=== PATIENT | male | born 1950 | race Caucasian/White ===

== ENCOUNTER 2017-02-26 19:57 | Observation (INO) | payer MEDICARE, BC ==
[~2017-02-26] VITALS: Ht 172.7 cm; Wt 90.0 kg
[~2017-02-26 19:57] MED LIST: ALPR1TAB3 PO; ATOR20TA PO; CIPR500T4 PO; LISI-587 PO; METF500 PO; METH5SOL3 PO; METO50TA PO; PROT40TA PO
[2017-02-26 19:59] VITALS: BP 198/93; PULSE 81; RESP 18; TEMP 99.2; O2SAT 96
[2017-02-26 20:52] VITALS: BP 140/90; PULSE 75; RESP 16; O2SAT 98
[2017-02-26] MEDS ORDERED: METH10TA PO (20:58)
[2017-02-26] MEDS ORDERED: HYDR-3580 PO (20:58)
[2017-02-26] MEDS ORDERED: METF500T PO (20:58)
[2017-02-26] MEDS ORDERED: ALPR1TAB3 PO (20:58)
[2017-02-26] MEDS ORDERED: ATOR40TA16 PO (20:58)
[2017-02-26] MEDS ORDERED: OMEP20TA PO (20:58)
[2017-02-26] MEDS ORDERED: METO50TA PO (20:58)
[2017-02-26] MEDS ORDERED: LISI20TA3 PO (20:58)
[2017-02-26 21:30] LABS: AUTOMATED NEUTROPHIL # 8.2 TH/MM3 (1.8-7.7); BASOPHIL % 0.3 % (0.0-2.0); EOSINOPHIL % 0.2 % (0.0-4.0); HEMATOCRIT 40.6 % (39.0-51.0); HEMO FLAGS DIFF FINAL; LYMPH % 20.1 % (9.0-44.0); LYMPHOCYTE # 2.3 TH/MM3 (1.0-4.8); MEAN CORPUSCULAR HEMOGLOBIN 31.3 PG (27.0-34.0); MEAN CORPUSCULAR HGB CONC 34.4 % (32.0-36.0); MONO % 7.6 % (0.0-8.0); NEUT % 71.8 % (16.0-70.0); PLATELET COUNT 250 TH/MM3 (150-450); RED BLOOD COUNT 4.46 MIL/MM3 (4.50-5.90); RED CELL DISTRIBUTION WIDTH 12.6 % (11.6-17.2); WHITE BLOOD COUNT 11.4 TH/MM3 (4.0-11.0)
[2017-02-26] MEDS ORDERED: ALPRAZolam 1 MG TAB PO ONE (21:30)
[2017-02-26] MEDS ORDERED: ASPIRIN 81 MG CHEW TAB CHEW ONE (21:30)
--- NOTE | 2017-02-26 21:38 | RADRPT ---
EXAM DATE/TIME: 02/26/2017 22:11 [place] COMPARISON: CHEST SINGLE AP, November 25, 2014, 17:35. INDICATIONS : Chest pain. MEDICAL HISTORY : None. SURGICAL HISTORY : None. ENCOUNTER: Initial ACUITY: 1 day PAIN SCORE: 5/10 LOCATION: Bilateral chest FINDINGS: A single view of the chest demonstrates the lungs to be symmetrically aerated without evidence of mas s, infiltrate or effusion. The cardiomediastinal contours are unremarkable. Osseous structures are intact. CONCLUSION: No acute disease. Joshua Jimenez MD on February 26, 2017 at 21:37 Board Certified Radiologist. This report was verified electronically.
[2017-02-26 21:40] LABS: APTT (PATIENT) 26.3 SEC (24.3-30.1); PROTHROMBIN TIME - PATIENT 11.3 SEC (9.8-11.6)
[2017-02-26 21:50] LABS: ALT (GPT) 36 U/L (12-78); ANION GAP 11 MEQ/L (5-15); AST (GOT) 25 U/L (15-37); BICARBONATE 24.9 MEQ/L (21.0-32.0); BLOOD UREA NITROGEN 25 MG/DL (7-18); CHLORIDE 98 MEQ/L (98-107); GLOMERULAR FILTRATION RATE 67 ML/MIN (>89); MAGNESIUM 1.9 MG/DL (1.5-2.5); POTASSIUM 3.8 MEQ/L (3.5-5.1); SODIUM (NA) 134 MEQ/L (136-145)
[2017-02-26 21:55] LABS: ALKALINE PHOSPHATASE 44 U/L (45-117); CREATINE KINASE 355 U/L (39-308); TOTAL BILIRUBIN ADULT 0.7 MG/DL (0.2-1.0)
[2017-02-26 22:06] LABS: CKMB 4.4 NG/ML (0.5-3.6)
--- NOTE | 2017-02-26 22:07 | PD ---
HPI Chief Complaint: Anxiety Time Seen by Provider: 20:37 Travel History International Travel<30 days: No Contact w/Intl Traveler<30days: No Traveled to known affect area: No History of Present Illness HPI The patient is a 66 year old male who presents to the [facility] emergency department with a history of reportedly not feeling well over the last few days. The patient attributes this to withdrawal symptoms from being out of his alprazolam for the last 5 days. He reports that they recently traveled to [place] with the intention of moving their, however they were having difficulty finding a physician, therefore they came back. He was previously being seen by a neurology group called the [facility]. The patient reports that they have been treating him with methadone for his chronic back pain as well as hydrocodone for his breakthrough pain. The patient reports that he was also prescribed alprazolam, however they decided that they would not be refilling this type of prescription any longer. He was told that he would need to follow-up with a psychiatrist to continue on the medication. He reports that over the last 2 days he's had nausea without vomiting, intermittent headaches and dizziness, chills, and worsening indigestion. He also reports that he's had bilateral shoulder pain. He reports that he was concerned that this may be related to his heart. He reports that he has been diagnosed with a heart murmur in the past, however he denies any prior history of myocardial infarction or congestive heart failure. He reports that he last had a stress test years ago and has no intention of having another one. On review of systems, the patient denies having any known fevers, however he has had reported chills over the last 2 days. He denies having any recent cough, congestion, worsening neck pain, chest pain, shortness of breath, abdominal pain, vomiting, diarrhea, urinary symptoms, or other neurologic symptoms. [facility] Past Medical History Narrative Medical The patient's past medical history is significant for diabetes mellitus, Guillain-Isaacs, posttraumatic stress disorder, anxiety disorder, hypertension, dyslipidemia, chronic back pain. Arthritis: No Asthma: No Autoimmune Disease: No Anxiety: Yes Depression: No Heart Rhythm Problems: No Cancer: No Cardiovascular Problems: Yes (HEART MURMUR) High Cholesterol: Yes Chemotherapy: No Congestive Heart Failure: No COPD: No Cerebrovascular Accident: No Diabetes: Yes Patient Takes Glucophage: Yes Diminished Hearing: No Endocrine: No Gastrointestinal Disorders: Yes GERD: No Genitourinary: No Hiatal Hernia: Yes (INGUINAL HERNIA) Hypertension: Yes Immune Disorder: No Kidney Stones: No Musculoskeletal: Yes (FOOT DROP) Neurologic: Yes (EVA BARRE) Psychiatric: Yes (PTSD) Reproductive: No Respiratory: No Migraines: No Radiation Therapy: No Renal Failure: No Seizures: No Sickle Cell Disease: No Sleep Apnea: No Ulcer: No Tetanus Vaccination: Never Vaccinated Influenza Vaccination: No Past Surgical History Narrative Surgical The patient's past surgical history is significant for 3 prior back surgeries, umbilical hernia repair. Abdominal Surgery: Yes (PREVIOUS PEG TUBE) AICD: No Arteriovenous Shunt: No Cardiac Surgery: No Ear Surgery: No Endocrine Surgery: No Eye Surgery: No Genitourinary Surgery: No Gynecologic Surgery: No Insulin Pump: No Joint Replacement: No Oral Surgery: No Pacemaker: No Thoracic Surgery: No Other Surgery: Yes Social History Alcohol Use: No Tobacco Use: No Substance Use: No Allergies-Medications (Allergen,Severity, Reaction): Coded Allergies: gabapentin (Verified Allergy, Unknown, 02/26/17) Reported Meds & Prescriptions Reported Meds & Active Scripts Active Reported Alprazolam 1 Mg Tab 1 Mg PO Q8H PRN Omeprazole 20 Mg Tab 20 Mg PO DAILY Atorvastatin (Atorvastatin Calcium) 40 Mg Tab 40 Mg PO HS Metoprolol Tartrate 50 Mg Tab 50 Mg PO DAILY Lisinopril-Hctz 20-25 Mg Tab 1 Tab PO DAILY Metformin (Metformin HCl) 500 Mg Tab 500 Mg PO BIDPC Hydrocodone-Acetaminophen 7.5-325 mg Tab 2 Tab PO Q6H PRN Methadone (Methadone HCl) 10 Mg Tab 10 Mg PO TID Review of Systems Except as stated in HPI: all other systems reviewed are Neg General / Constitutional: Positive: Chills, No: Fever Eyes: No: Visual changes HENT: No: Headaches Cardiovascular: No: Chest Pain or Discomfort, Diaphoresis, Dyspnea on exertion Respiratory: No: Shortness of Breath Gastrointestinal: Positive: Nausea, Indigestion, No: Vomiting, Diarrhea, Abdominal Pain, Constipation, Loss of Appetite Genitourinary: No: Dysuria Musculoskeletal: Positive: Myalgias (bilateral shoulder), Pain Skin: No Rash Neurologic: No: Weakness Psychiatric: No: Depression Endocrine: No: Polydipsia Hematologic/Lymphatic: No: Easy Bruising Physical Exam Narrative General: The patient is a well-developed well-nourished male in no acute distress Head and Neck exam: Head is normocephalic atraumatic. Eyes: EOMI, pupils are equal round and reactive to light. Nose: Midline septum with pink mucous membranes Mouth: Dentition unremarkable. Moist mucus membranes. Posterior oropharynx is not erythematous. No tonsillar hypertrophy. Uvula midline. Airway patent. Neck: No palpable lymphadenopathy. No nuchal rigidity. No thyromegaly. Cardiovascular: Regular rate and rhythm without murmurs, gallops, or rubs. No pulse deficit to the extremities on simultaneously auscultation to palpation of his radial artery. Lungs: Clear to auscultation bilaterally. No wheezes, rhonchi, or rales. Abdomen: Soft, without tenderness to palpation in all 4 quadrants of the abdomen. No guarding, rebound, or rigidity. Normal bowel sounds are audible. No tenderness on palpation of McBurney's point. Extremities: No clubbing, cyanosis, or edema. 2+ pulses in all 4 extremities. No calf tenderness on palpation. Back: No spinous process tenderness to palpation. No costovertebral angle tenderness to palpation. Neurologic Exam: Grossly nonfocal. No tremulousness noted. Skin Exam: No rash noted. Intact skin that is warm and dry. Data Data Last Documented VS Vital Signs Date Time Temp Pulse Resp B/P (MAP) Pulse Ox O2 Delivery O2 Flow Rate FiO2 02/26/17 22:42 78 18 150/69 (96) 98 Room Air 02/26/17 19:59 99.2 Orders Orders Electrocardiogram (02/26/17 21:14) Complete Blood Count With Diff (02/26/17 21:14) Comprehensive Metabolic Panel (02/26/17 21:14) Creatine Kinase (Cpk) (02/26/17 21:14) Ckmb (Isoenzyme) Profile (02/26/17 21:14) Troponin I (02/26/17 21:14) B-Type Natriuretic Peptide (02/26/17 21:14) Prothrombin Time / Inr (Pt) (02/26/17 21:14) Act Partial Throm Time (Ptt) (02/26/17 21:14) Lipase (02/26/17 21:14) Magnesium (Mg) (02/26/17 21:14) Chest, Single Ap (02/26/17 21:14) Iv Access Insert/Monitor (02/26/17 21:14) Ecg Monitoring (02/26/17 21:14) Oximetry (02/26/17 21:14) Alprazolam (Xanax) (02/26/17 21:30) Aspirin Chew (Aspirin Chew) (02/26/17 21:30) CKMB (02/26/17 21:20) CKMB% (02/26/17 21:20) Nitroglycerin 2% Oint (Nitroglycerin 2% (02/26/17 23:00) Admit Order (Ed Use Only) (02/26/17 22:50) Labs Laboratory Tests Test 02/26/17 21:20 White Blood Count 11.4 TH/MM3 Red Blood Count 4.46 MIL/MM3 Hemoglobin 14.0 GM/DL Hematocrit 40.6 % Mean Corpuscular Volume 91.0 FL Mean Corpuscular Hemoglobin 31.3 PG Mean Corpuscular Hemoglobin Concent 34.4 % Red Cell Distribution Width 12.6 % Platelet Count 250 TH/MM3 Mean Platelet Volume 7.0 FL Neutrophils (%) (Auto) 71.8 % Lymphocytes (%) (Auto) 20.1 % Monocytes (%) (Auto) 7.6 % Eosinophils (%) (Auto) 0.2 % Basophils (%) (Auto) 0.3 % Neutrophils # (Auto) 8.2 TH/MM3 Lymphocytes # (Auto) 2.3 TH/MM3 Monocytes # (Auto) 0.9 TH/MM3 Eosinophils # (Auto) 0.0 TH/MM3 Basophils # (Auto) 0.0 TH/MM3 CBC Comment DIFF FINAL Differential Comment Prothrombin Time 11.3 SEC Prothromb Time International Ratio 1.0 RATIO Activated Partial Thromboplast Time 26.3 SEC Blood Urea Nitrogen 25 MG/DL Creatinine 1.10 MG/DL Random Glucose 241 MG/DL Total Protein 8.6 GM/DL Albumin 4.4 GM/DL Calcium Level 9.8 MG/DL Magnesium Level 1.9 MG/DL Alkaline Phosphatase 44 U/L Aspartate Amino Transf (AST/SGOT) 25 U/L Alanine Aminotransferase (ALT/SGPT) 36 U/L Total Bilirubin 0.7 MG/DL Sodium Level 134 MEQ/L Potassium Level 3.8 MEQ/L Chloride Level 98 MEQ/L Carbon Dioxide Level 24.9 MEQ/L Anion Gap 11 MEQ/L Estimat Glomerular Filtration Rate 67 ML/MIN Total Creatine Kinase 355 U/L Creatine Kinase MB 4.4 NG/ML Creatine Kinase MB % 1.2 % Troponin I LESS THAN 0.02 NG/ML B-Type Natriuretic Peptide 111 PG/ML Lipase 160 U/L MDM Medical Decision Making Medical Screen Exam Complete: Yes Emergency Medical Condition: Yes Medical Record Reviewed: Yes Interpretation(s) Last Impressions Chest X-Ray 02/26/172113 Signed Impressions: Service Date/Time: Sunday, February 26, 2017 22:11 - CONCLUSION: No acute disease. Joshua Jimenez MD Differential Diagnosis Acute coronary syndrome, versus acid reflux, versus exacerbation of anxiety disorder due to being out of anxiolytics, versus withdrawal syndrome Narrative Course During the course of the patients emergency department visit, the patients history, examination, and differential diagnosis were reviewed with the patient. The patient was placed on a cardiac rehabilitation program director with oximetry and frequent blood pressure monitoring. The patient had IV access obtained and blood work sent for analysis. The patient had an ECG done on arrival. The patient's ECG reveals a sinus rhythm with occasional ventricular premature complexes, nonspecific T-wave abnormalities, T waves are inverted in V1. While I was in the room discussing the patient's history with him, his would repeatedly attempted to answer questions for him. I explained to her that I would like him to try to answer the questions the best of his ability. Unfortunately at that point the patient's became agitated, stood up out of the chair at the bedside and began to yell at me very close to my face and in confrontational way. The nursing staff ran back into the room to see what was going on, the patient at that point stormed out of the emergency department stating that she would talk to administration. The patient was initially provided aspirin 324 mg by mouth 1. Xanax 1 mg by mouth 1. The patients laboratory studies were reviewed and remarkable for a white count of 11.4, hemoglobin 14, platelets 250 with neutrophils 71.8, CMP is remarkable for sodium of 134, BUN 25, glucose 241, alkaline phosphatase 44, CPK 355, CK-MB 4.4, percent 1.2, troponin I less than 0.02, BNP is 111, lipase 160. PT 11.3, PTT 26.3 Radiology studies were reviewed and remarkable for a chest x-ray that shows no acute disease. The patient initially reported that he was concerned about the possibility of this shoulder pain and indigestion being related to his heart. I explained that I am also concerned and given his history of diabetes mellitus, hypertension, dyslipidemia, he has several risk factors for coronary artery disease. He denies having any recent stress testing done. I recommended that we admit the patient for rule out serial cardiac enzyme protocol, and consideration of stress testing to follow. While the patient was awaiting a bed in the chest pain center, the patient again changed his mind and decided that he would prefer to follow-up with a baffle installer as an outpatient. I explained to him that his symptoms could be related to an acute coronary syndrome which can be life-threatening. In spite of this, the patient reports that he cannot stay in a hospital bed hooked up to the monitors. AMA: The risks of leaving against medical advice without further evaluation treatment were discussed with the patient. These risks include cardiac dysfunction, cardiac dysrhythmia, possible heart attack, possible stroke or . The patient indicated understanding of these risks and appeared to have the capacity to make this decision. Diagnosis Primary Impression: Chest pain, rule out acute myocardial infarction Additional Impressions: Anxiety disorder Qualified Codes: F41.9 - Anxiety disorder, unspecified Has run out of medications Referrals: Tom Coelho MD 1 day Ken Peterson DO 1 day Patient Instructions: Chest Pain (ED), General Instructions Med/Other Pt SpecificInfo: No Change to Meds Disposition: 07 AGAINST MEDICAL ADVICE Condition: Stable Liss Levine MD Feb 26, 2017 22:07
[2017-02-26 22:42] VITALS: BP 150/69; PULSE 78; RESP 18; O2SAT 98
[2017-02-26] MEDS ORDERED: NITROGLYCERIN 2% OINT 1 GM PACKET TOPICAL ONE (23:00)
--- NOTE | 2017-02-27 15:08 | EKG ---
Date Performed: 02/26/2017 Time Performed: 20:48:01 PTAGE: 66 years EKG: Sinus rhythm WITH OCCASIONAL VENTRICULAR PREMATURE COMPLEXES NONSPECIFIC T-WAVE ABNORMALITY BORDERLINE ECG INTERP RETATION BASED ON A DEFAULT AGE OF 40 YEARS Compared to prior tracing no significant change PREVIOUS TRACING : 11/25/2014 17.10 DOCTOR: Reynold Lazaro Interpretating Date/Time 02/27/2017 15:06:43
== END 2017-02-26 23:40 | disposition left against medical advice (07) ==
LOC: NEPE 19:57 → NEDA 22:52
PROVIDERS: ADMIT Internal Medicine Cardiovascular Disease; ATTEND Internal Medicine Cardiovascular Disease
DX: R07.9 Chest pain, unspecified (principal); F41.9 Anxiety disorder, unspecified; G89.29 Other chronic pain; M54.9 Dorsalgia, unspecified; R11.0 Nausea; R51 Headache; R42 Dizziness and giddiness; M25.511 Pain in right shoulder; M25.512 Pain in left shoulder; E78.00 Pure hypercholesterolemia, unspecified; R01.1 Cardiac murmur, unspecified; E11.9 Type 2 diabetes mellitus without complications; K44.9 Diaphragmatic hernia without obstruction or gangrene; F43.10 Post-traumatic stress disorder, unspecified; Z79.84 Long term (current) use of oral hypoglycemic drugs; I10 Essential (primary) hypertension; R94.31 Abnormal electrocardiogram [ECG] [EKG]
CPT/HCPCS: 71010; 80053; 82550; 82552; 83690; 83735; 83880; 84484; 85025; 85610; 85730; 93005; 99285; G0378